=== PATIENT | male | born 1945 | race Caucasian/White ===

== ENCOUNTER 2024-03-14 10:40 | Outpatient (OUT) | payer MEDICARE, OTHER, SELFPAY ==
--- NOTE | 2024-03-14 10:56 | ECG_ITS ---
[facility] Test Date: 2024-03-14 Pat Name: ALLISON WELLER Department: Room: - Gender: Male Manager Auto: : [id number] Requested By: MAYELA PATEL Order Number: [id number] Reading MD: TOD MEDRANO Measurements Intervals Benson Rate: 75 P: 61 LA: 158 QRS: 59 QRSD: 80 T: 53 QT: 348 QTc: 390 Interpretive Statements SINUS RHYTHM WITH FREQUENT VENTRICULAR PREMATURE COMPLEXES ABNORMAL RHYTHM ECG No previous ECG available for comparison Electronically Signed On 03-14-2024 22:40:02 EDT by TOD MEDRANO
[2024-03-14 12:07] LABS: Basophils Percent Auto 0.4 % (0.2-2.0); Eosinophils Absolute Auto 0.2 10^3/uL (0.0-0.7); Eosinophils Percent Auto 2.2 % (0.9-7.0); Hemoglobin 13.3 g/dL (14.0-18.0); Immature Granulocytes Abs Auto 0.03 10^3/uL (0.00-0.03); Immature Granulocytes Pct Auto 0.4 % (0.0-0.5); Lymphocytes Percent Auto 12.7 % (20.5-60.0); Mean Corpuscular HGB Conc 32.4 g/dL (29.9-35.2); Mean Corpuscular Hemoglobin 32.2 pg (25.9-34.0); Mean Corpuscular Volume 99.3 fL (80.0-94.0); Mean Platelet Volume 9.9 fL (9.5-13.5); Monocytes Absolute Auto 0.5 10^3/uL (0.3-0.8); Monocytes Percent Auto 5.9 % (1.7-12.0); Neutrophils Absolute Auto 6.3 10^3/uL (1.4-6.5); Neutrophils Percent Auto 78.4 % (43.0-75.0); Platelet Count 202 10^3/uL (150-450); Red Blood Count 4.13 10^6/uL (4.70-6.10); Red Cell Distribution Width 11.7 % (11.0-15.0); White Blood Count 8.1 10^3/uL (4.0-11.0)
[2024-03-14 12:25] LABS: Anion Gap 15.9; BUN Creatinine Ratio 19.8; Calcium 10.1 mg/dL (8.5-10.1); Carbon Dioxide 23.3 mmol/L (21.0-32.0); Chloride 102 mmol/L (98-107); Estimated GFR (African America >60 (>=60 mL/min/1.73m^2); Estimated GFR (Non-African Ame 58 (>=60 mL/min/1.73m^2); Glucose 169 mg/dL (74-106); Potassium 4.2 mmol/L (3.5-5.1); Sodium 137 mmol/L (136-145)
[2024-03-14 12:34] LABS: INR 1.02; Partial Thromboplastin Time 28.4 sec (22.3-36.2); Prothrombin Time 10.8 sec (9.0-11.6)
== END 2024-03-14 10:41 | disposition home or self-care (01) ==
LOC: PST 10:48
PROVIDERS: PCP Family Medicine; Visit Provider Otolaryngology
DX: Z01.810 Encounter for preprocedural cardiovascular examination (principal); Z01.812 Encounter for preprocedural laboratory examination; H69.92 Unspecified Eustachian tube disorder, left ear
CPT/HCPCS: 36415; 80048; 85025; 85610; 85730; 93005

== ENCOUNTER 2024-03-30 07:19 | Day surgery (SDC) | payer MEDICARE, OTHER, SELFPAY ==
[2024-03-14 11:53] VITALS: BP 132/65; PULSE 77; TEMP 36.3; O2SAT 100; BMI 27.2
[2024-03-30] VITALS (10 sets, daily range): BP systolic 110–145; BP diastolic 50–77; PULSE 70–83; TEMP 36.2–37.2; O2SAT 93–100; BMI 27.3
--- NOTE | 2024-03-30 | OP_ITS ---
OPERATION DATE: 03/30/2024 PREOPERATIVE DIAGNOSIS: Left eustachian tube dysfunction and otitis media with effusion. POSTOPERATIVE DIAGNOSIS: Left eustachian tube dysfunction and otitis media with effusion. PROCEDURE: Left myringotomy and tube with microdissection placement of a T-tube and a nasal endoscopy. ANESTHESIA: General endotracheal. COMPLICATIONS: None. FINDINGS: Left serous effusion. No nasopharyngeal path evident. INDICATIONS: This 78-year-old man presented with otitis media with effusion, unresponsive to aggressive medical management. PROCEDURE: Patient identified in the holding area and taken back to the OR where he was placed in the supine position. After induction of general anesthesia, the left ear was approached with the otomicroscope. An anterior radial myringotomy was performed. A modified Lon?s T-tube was folded and inserted into the middle ear using microdissection. Afrin soaked pledgets were placed in the left nose, and after waiting adequate time for decongestion, the 30 degree nasal endoscope was used to examine the nasopharynx, and there was no abnormal path found. Patient was then awakened and taken to the recovery room in good condition. AFTAB
--- OUTSIDE RECORDS SUMMARY | 2024-03-30 07:24 | XMS_ITS | CCD ---
Author Organization [facility] Care Team Providers Care Press Worker Helper Name Role Phone DR SAMMI GRANADO Attending Unavailable VANNESA, DR CULVER Consulting Unavailable VANNESA, DR CULVER Admitting Unavailable RYAN TAMEZ Referring Unavailable SAMMI GRANADO Primary Care Unavailable SAMMI GRANADO Attending Unavailable SAMMI GRANADO Referring Unavailable SAMMI GRANADO Attending Unavailable FOZIA ASCENCIO Attending Unavailable IMELDA MELO Attending Unavailable HILARY MCCLURE Attending Unavailable FOZIA ASCENCIO Referring Unavailable FOZIA ASCENCIO Attending Unavailable SAMMI GRANADO Attending Unavailable Sammi Granado MD Unavailable Sammi Granado MD Primary Care Provider Allergies Allergy Classification Reported Allergen(s) Allergy Type Date of Onset Reaction(s) Facility (3 sources) Furosemide; Translations: [FUROSEMIDE] Drug Allergy 01-03-2020 Swelling [facility] Rep[facility] Medications Current Medications Medication Drug Class(es) Dates Sig (Normalized) Sig (Original) atorvastatin 40 mg oral tablet (3 sources) HMG-CoA Reductase Inhibitor Start: 11-23-2023 End: 03-20-2024 take 1 tablet by mouth at bedtime atorvastatin (Lipitor) 40 MG tablet Indications: Mixed hyperlipidemia (CMS/HCC) Take 1 tablet (40 mg) by mouth at bedtime 90 tablet 1 03/20/2024 Active calcium carbonate 1500 mg / cholecalciferol 800 unt oral tablet (2 sources) Vitamin D Start: 11-23-2023 take 1 tablet by mouth in the morning Calcium Carb-Cholecalcifero l (Calcium+D3) 600-20 MG-MCG tablet Take 1 tablet by mouth in the morning and 1 tablet at noon. 11/23/2023 Active clopidogrel 75 mg oral tablet (3 sources) P2Y12 Platelet Inhibitor Start: 11-23-2023 End: 11-22-2024 take 1 tablet by mouth in the morning clopidogrel (Plavix) 75 MG tablet Indications: Stroke-like symptoms Take 1 tablet (75 mg) by mouth in the morning. 90 tablet 1 03/20/2024 09/16/2024 Active empagliflozin 25 mg oral tablet (2 sources) Sodium-Glucose Cotransporter 2 Inhibitor Start: 03-06-2024 End: 05-05-2024 take 1 tablet by mouth in the morning empagliflozin (Jardiance) 25 MG Indications: Type 2 diabetes mellitus without complication, without long-term current use of insulin (CMS/HCC) Take 1 tablet (25 mg) by mouth in the morning. 30 tablet 1 03/06/2024 05/05/2024 Active ferrous sulfate 325 mg oral tablet (2 sources) Start: 11-23-2023 End: 11-22-2024 take 1 tablet by mouth at bedtime ferrous sulfate 325 (65 Fe) MG tablet Take 1 tablet (325 mg) by mouth at bedtime 90 tablet 3 11/23/2023 11/22/2024 Active fluticasone propionate 0.05 mg/actuat metered dose nasal spray (2 sources) Corticosteroid Start: 12-21-2023 End: 12-20-2024 take 1 spray(s) nasal route once daily fluticasone (Flonase) 50 MCG/ACT nasal spray Indications: PND (post-nasal drip) Administer 1 spray into each nostril Daily Shake gently. Before first use, prime pump. After use, clean tip and replace cap. 16 g 2 12/21/2023 12/20/2024 Active glipiZIDE 5 mg oral tablet (5 sources) Sulfonylurea Start: 04-20-2023 End: 04-19-2024 take 1 tablet by mouth in the morning glipiZIDE (Glucotrol) 10 MG tablet Indications: Type 2 diabetes mellitus without complication, without long-term current use of insulin (CMS/HCC) Take 1 tablet (10 mg) by mouth in the morning. 90 tablet 3 04/20/2023 04/19/2024 Active Start: 04-20-2023 End: 09-16-2024 take 1 tablet by mouth at bedtime glipiZIDE (Glucotrol) 5 MG tablet Indications: Type 2 diabetes mellitus without complication, without long-term current use of insulin (CMS/HCC) Take 1 tablet (5 mg) by mouth at bedtime 90 tablet 1 03/20/2024 09/16/2024 Active 3 ml insulin glargine 100 unt/ml pen injector (2 sources) Insulin Analog Start: 12-21-2023 End: 12-20-2024 insulin glargine (Lantus SoloStar) 100 UNIT/ML pen Indications: Type 2 diabetes mellitus with hyperglycemia, with long-term current use of insulin (CMS/HCC) Inject 22 Units under the skin at bedtime 19.8 mL 3 12/21/2023 12/20/2024 Active loratadine 10 mg oral tablet (2 sources) take 1 tablet by mouth every twenty-four hours as needed loratadine (Claritin) 10 MG tablet Take 1 tablet by mouth Daily as needed for allergies Active metFORMIN hydrochloride 850 mg oral tablet (2 sources) Biguanide Start: 01-04-2024 End: 01-03-2025 metFORMIN (Glucophage) 850 MG tablet Indications: Type 2 diabetes mellitus with hyperglycemia, with long-term current use of insulin (CMS/[facility]) Take 1 tablet (850 mg) by mouth in the morning and 1 tablet (850 mg) at noon and 1 tablet (850 mg) in the evening. Take with meals. 270 tablet 3 01/04/2024 01/03/2025 Active Misc Natural Products (Osteo Bi-Flex Triple Strength) tablet (2 sources) take 2 tablets by mouth in the morning Misc Natural Products (Osteo Bi-Flex Triple Strength) tablet Take 2 tablets by mouth in the morning. Active Multiple Vitamins-Minerals (Centrum Silver 50+Men) tablet (2 sources) Start: 11-23-2023 take 1 tablet by mouth in the evening Multiple Vitamins-Minerals (Centrum Silver 50+Men) tablet Take 1 tablet by mouth in the evening 11/23/2023 Active ramipril 5 mg oral capsule (3 sources) Angiotensin Converting Enzyme Inhibitor Start: 04-20-2023 End: 09-16-2024 take 1 capsule by mouth once daily ramipril (Altace) 5 MG capsule Indications: Primary hypertension (CMS/HCC) Take 1 capsule (5 mg) by mouth Daily 90 capsule 1 03/20/2024 09/16/2024 Active tamsulosin hydrochloride 0.4 mg oral capsule (2 sources) alpha-Adrenergic [place] Start: 11-23-2023 End: 11-22-2024 take 1 capsule by mouth every twenty-four hours at bedtime tamsulosin (Flomax) 0.4 MG 24 hr capsule Indications: Benign prostatic hyperplasia with urinary frequency Take 1 capsule (0.4 mg) by mouth at bedtime 90 capsule 3 11/23/2023 11/22/2024 Active Problems Active Problems Problem Classification Problem Date Documented Date Episodic/Chronic Cancer of prostate (3 sources) Malignant neoplasm of prostate; Translations: [Adenocarcinoma of prostate] Onset: 06-10-2021 12-01-2022 Chronic Diabetes mellitus with complications (2 sources) Hyperglycemia due to type 2 diabetes mellitus; Translations: [Type 2 diabetes mellitus with hyperglycemia] Onset: 12-01-2022 08-05-2023 Chronic Diabetes mellitus without complication (1 source) Type 2 diabetes mellitus without complication; Translations: [Type 2 diabetes mellitus without complications] 03-20-2024 Chronic Disorders of lipid metabolism (3 sources) Mixed hyperlipidemia; Translations: [Mixed hyperlipidemia] Onset: 12-01-2022 12-01-2022 Chronic Essential hypertension (3 sources) Essential hypertension; Translations: [Essential (primary) hypertension] Onset: 12-01-2022 12-01-2022 Chronic Hyperplasia of prostate (2 sources) Benign prostatic hyperplasia; Translations: [Benign prostatic hyperplasia with lower urinary tract symptoms] Onset: 11-24-2022 12-01-2022 Chronic Occlusion or stenosis of precerebral arteries (2 sources) Bilateral stenosis of carotid arteries; Translations: [Occlusion and stenosis of bilateral carotid arteries] Onset: 06-15-2022 12-01-2022 Chronic Other connective tissue disease (3 sources) Neurological symptom; Translations: [Unspecified symptoms and signs involving the nervous system] Onset: 01-14-2023 01-21-2023 Episodic Other injuries and conditions due to external causes (2 sources) Otitic barotrauma; Translations: [Otitic barotrauma, initial encounter] Onset: 01-03-2024 01-03-2024 Episodic Other upper respiratory disease (2 sources) Non-allergic rhinitis; Translations: [Chronic rhinitis] Onset: 12-01-2022 12-01-2022 Chronic Otitis media and related conditions (4 sources) Otitis media of left ear; Translations: [Unspecified nonsuppurative otitis media, left ear] Onset: 01-03-2024 01-03-2024 Episodic Transient cerebral ischemia (2 sources) Transient cerebral ischemia; Translations: [Transient cerebral ischemic attack, unspecified] Onset: 01-03-2024 01-03-2024 Chronic Unclassified (3 sources) CONTACT W/AND (SUSP) EXPOS COVID-19; Translations: [CONTACT W/AND (SUSP) EXPOS COVID-19] Onset: 04-04-2021 Past or Other Problems Problem Classification Problem Date Documented Date Episodic/Chronic Other and unspecified benign neoplasm (2 sources) Hyperplastic polyp of large intestine; Translations: [Polyp of colon] Onset: 1 12-01-2022 Episodic Other connective tissue disease (2 sources) Weakness of left hand; Translations: [Other symptoms and signs involving the musculoskeletal system] Onset: 3 01-21-2023 Episodic Other gastrointestinal disorders (2 sources) Dysphagia; Translations: [Dysphagia, pharyngoesophageal phase] Onset: 3 12-01-2022 Episodic Other screening for suspected conditions (not mental disorders or infectious disease) (2 sources) Patient encounter status; Translations: [Encounter for screening for malignant neoplasm of colon] Onset: 1 12-01-2022 Episodic Spondylosis; intervertebral disc disorders; other back problems (2 sources) Cervical radiculopathy; Translations: [Radiculopathy, cervical region] Onset: 3 01-21-2023 Episodic Unclassified (1 source) CONTACT W/AND (SUSP) EXPOS COVID-19; Translations: [CONTACT W/AND (SUSP) EXPOS COVID-19] Onset: 1 Results Test Name Value Interpretation Reference Range Facility ALL CBC WITH AUTO DIFFon BASOPHILS ABSOLUTE AUTO 0.0 [facility] Basophils/100 WBC (Bld) 0.4 % 0.2 - 2.0 % [facility] Eosinophils/100 WBC (Bld) 2.2 % 0.9 - 7.0 % [facility] Erythrocyte distribution width (RBC) [Ratio] 11.7 % 11.0 - 15.0 % [facility] Hematocrit (Bld) [Volume fraction] 41.0 % Low 42.0 - 54.0 % [facility] Hemoglobin (Bld) [Mass/Vol] 13.3 g/dL Low 14.0 - 18.0 g/dL [facility] IMMATURE GRANULOCYTES ABS AUTO 0.03 [facility] Immature granulocytes/100 WBC (Bld) 0.4 % 0.0 - 0.5 % [facility] Interpretation and review of laboratory results Abnormal [facility] LYMPHOCYTES ABSOLUTE AUTO 1.0 Low [facility] Lymphocytes/100 WBC (Bld) 12.7 % Low 20.5 - 60.0 % [facility] MCH (RBC) [Entitic mass] 32.2 pg 25.9 - 34.0 pg [facility] MCHC (RBC) [Mass/Vol] 32.4 g/dL 29.9 - 35.2 g/dL [facility] MCV (RBC) [Entitic vol] 99.3 fL High 80.0 - 94.0 fL [facility] MONOCYTES ABSOLUTE AUTO 0.5 [facility] Monocytes/100 WBC (Bld) 5.9 % 1.7 - 12.0 % [facility] NEUTROPHILS ABSOLUTE AUTO 6.3 [facility] Neutrophils/100 WBC (Bld) 78.4 % High 43.0 - 75.0 % [facility] Platelet mean volume (Bld) [Entitic vol] 9.9 fL 9.5 - 13.5 fL [facility] PLT 202 [facility] RBC 4.13 Low [facility] TBH WBC 8.1 [facility] Prostate specific Ag [Mass/V ol]on 11-23-2023 PROSTATIC SPEC ANT <0.01 Normal 0.00-4.00 [facility] Comment on above: Result Comment: The method used for this test is Estephanie [place] DXI chemiluminescent immunoassay. Values obtained by different assay methods cannot be used interchangeably. Performed By: #### 2 [id number] #### [facility] ([id number]) [address] [place] [address] DEXA BONE DENSITYon 08-30-19 DEXA BONE DENSITY HISTORY: Screening for osteoporosis COMPARISON: None available COMMENTS: The lumbar spine and both hips were scanned. The mean bone mineral density from L1 to L4 is 0.845 g/sq cm. T-score -2.2. Z- score -1.1 The mean bone mineral density of the left femoral neck is 0.676 g/sq cm. T-score -1.9. Z- score -0.4. The mean bone mineral density of the right femoral neck is 0.722 g/sq cm. T-score -1.5. Z- score -0.1. These values meet WHO criteria for osteopenia. 10-year fracture risk: Major osteoporotic fracture 8.3%; hip fracture 3%. IMPRESSION: OSTEOPENIA. 1 year follow-up recommended. ELECTRONICALLY SIGNED BY: Carson Arrington, DO Normal Not Available US Carotid, Bilateralon 05-08 US Carotid, Bilateral FINDINGS: Right (% stenosis)Left (% stenosis) ICA Peak Systolic Velocity (cm/sec)434 (84%)241 (65%) ICA/CCA Systolic Ratio4.9 (78%)2.7 (61%) BILATERAL CAROTID SYSTEMS: Large volume of echogenic shadowing and non-shadowing plaque bilaterally both carotid bulbs and ICA/ECA origins, right greater than left. Velocity and ratio values are hemodynamically significant (left 61-65%, right 78-84%). Normal bilateral vertebral arterial flow. Estimated range of stenosis*: LEFT: Hemodynamically significant, 61-65% stenosis RIGHT: Hemodynamically significant, severe, 78-84% *COMMENT: These estimates represent a median value within a 95% confidence interval range. They represent percent diameter ICA stenosis derived from regression curve analysis using the NASCET method and Doppler ultrasound velocities. Please note with high-grade stenosis (greater than 95%), an actual reduction in velocity will occur. Reference: Rock Harvey. carotid ultrasound, in [facility] NA, 39 (3), Oct, 2000. Report reported and signed by Rock Leon on 06/03/2022 1212 Normal [facility] Covid-19 PCR (CVDTBH)on 03-08 SARS-CoV-2 (COVID-19) RNA ROB+probe Ql (Unsp spec) Not detected Normal NOT DETECTED [facility] Comment on above: Result Comment: This test is not yet approved or cleared by the [place] FDA. When there are no FDA-approved or cleared tests available, and other criteria are met, FDA can make tests available under an emergency access mechanism called an Emergency Use Authorization (EUA). The EUA for this test is supported by the [place] of Health and Human Service's (HHS's) declaration that circumstances exist to justify the emergency use of in vitro diagnostics for the detection and/or diagnosis of the virus that causes COVID-19. This EUA will remain in effect (meaning this test can be used) for the duration of the COVID-19 declaration justifying emergency of IVDs, unless it is terminated or revoked by FDA (after which the test may no longer be used). When diagnostic testing is negative, the possibility of a false negative should be considered in the context of a patient's recent exposures and the presence of clinical signs and symptoms consistent with SARS-CoV-2. Performed By: #### C [facility] #### [facility] [address] [place] [address] Dr. Zaafr Croft Encounters Encounter Date Encounter Type Care Provider Facility Start: 03-20-2024 End: 03-20-2024 Refill Sammi Granado MD Work Phone: [facility] Comment on above: Type 2 diabetes suzy itus without complication, without long- term current use of insulin ([facility]/HCC); Primary hypertension ([facility]); Mixed hyperlipidemia ([facility]); Stroke-like symptoms Start: 03-14-2024 End: 03-14-2024 [facility] Result Encounter Generic External Data Provider [facility] Unsolicited Start: 03-14-2024 End: 03-14-2024 [facility] Result Encounter Generic External Data Provider [facility] Unsolicited Start: 03-01-2024 End: 03-01-2024 ambulatory FOZIA H TIMMIS Not Available Start: 02-23-2024 End: 02-23-2024 ambulatory HILARY MCCLURE Not Available Start: 01-03-2024 End: 01-03-2024 ambulatory FOZIA H TIMMIS Not Available Start: 12-21-2023 End: 12-21-2023 ambulatory SAMMI GRANADO Not Available Start: 11-23-2023 End: 11-23-2023 ambulatory RYAN ALARCONUSTER [facility] Start: 08-30-2023 End: 08-30-2023 ambulatory SAMMI GRANADO Not Available Start: 08-27-2023 End: 08-27-2023 ambulatory SAMMI GRANADO Not Available Start: 05-28-2023 End: 05-28-2023 ambulatory SAMMI GRANADO Not Available Start: 05-13-2023 End: 05-13-2023 ambulatory IMELDA MELO Not Available Start: 03-28-2021 End: 03-28-[address] SAMMI GRANADO Facility:H1 Procedures Date Procedure Procedure Detail Performing Clinician Start: 03-14-2024 ALL CBC WITH AUTO DIFF Fozia Ascencio MD Work Phone: Plan of Treatment Date Care Activity Detail Author Start: 05-05-2025 Glaucoma screening Diabetes: R etinopathy Screening [facility] Start: 08-26-2024 Urine screening for protein Diabetes: Urine Protein Screening [facility] Start: 06-06-2024 End: 06-06-2024 Patient encounter procedure 06/06/2024 10:00 AM EST Office Visit [facility] [address] [place] [address] Sammi Granado MD [address] [place], [place] [id number] [facility] Start: 05-28-2024 Medicare Annual Well ness (AWV) Medicare Annual Wellness (AWV) [facility] Start: 05-15-2024 End: 05-15-2024 Patient encounter procedure 05/15/2024 1:15 PM EST Office Visit [facility] [address] [place] [id number] Imelda Melo MD [address] [place] [address] [facility] Start: 05-02-2024 End: 05-02-2024 Patient encounter procedure 05/02/2024 9:50 AM EST Office Visit [facility] [address] [facility] [address] [place] [address] Fozia Ascencio MD [address] [facility] [address] [place] [address] [facility] Start: 03-30-2024 End: 03-30-2024 Patient encounter procedure 03/30/2024 9:00 AM EDT Procedure Visit [facility] Fozia Ascencio MD [address] [facility] [address] [place] [address] [facility] Start: 03-22-2024 Hemoglobin A1c measurement Diabetes: Hemoglobin A1C [facility] Immunizations Immunization Date Immunization Notes Care Provider Fa cility 12-21-2023 Pneumococcal Conjuga te PCV 20 Generic Provider [facility] 06-17-2023 ABRYSVO - Respirator y syncytial virus (RSV), vaccine, bivalent, protein subunit RSV prefusion F, diluent reconstituted, 0.5 mL, PF Generic Provider [facility] 03-04-2023 influenza, high dose seasonal, preservative-free Generic Provider [facility] are 05-28-2022 tetanus and diphther ia toxoids, adsorbed, preservative free, for adult use (2 Lf of tetanus toxoid and 2 Lf of diphtheria toxoid) Generic Provider [facility] 05-28-2022 tetanus and diphther ia toxoids, adsorbed, preservative free, for adult use (5 Lf of tetanus toxoid and 2 Lf of diphtheria toxoid) Generic Provider [facility] 05-20-2022 Moderna SARS-CoV-2 B ooster Vaccination Generic Provider [facility] 05-20-2022 SARS-COV-2 (COVID-19 ) vaccine, mRNA, spike protein, LNP, bivalent, PF Generic Provider [facility] re 03-17-2022 Influenza, High-dose Seasonal, Quadrivalent, Preservative Free Generic Provider [facility] 02-21-2021 Influenza, High-dose Seasonal, Quadrivalent, Preservative Free Generic Provider [facility] 05-08-2020 zoster vaccine recombinant Generic P rovider [facility] 02-15-2020 zoster vaccine recombinant Generic P rovider [facility] 02-07-2020 influenza, high dose seasonal, preservative-free Generic Provider [facility] are 02-07-2020 Influenza, High-dose Seasonal, Quadrivalent, Preservative Free Generic Provider [facility] 02-24-2019 influenza, high dose seasonal, preservative-free Generic Provider [facility] are 02-24-2019 Influenza, High-dose Seasonal, Quadrivalent, Preservative Free Generic Provider [facility] 03-11-2018 influenza, high dose seasonal, preservative-free Generic Provider [facility] are 03-11-2018 Influenza, High-dose Seasonal, Quadrivalent, Preservative Free Generic Provider [facility] 03-22-2017 influenza, high dose seasonal, preservative-free Generic Provider [facility] are 02-02-2017 pneumococcal conjuga te vaccine, 13 valent Generic [facility] 03-06-2016 influenza, high dose seasonal, preservative-free Generic Provider [facility] are 03-06-2016 influenza, injectabl e, quadrivalent, preservative free Generic Provider [facility] 03-27-2013 influenza virus vacc ine, whole virus Generic [facility] 03-08-2012 influenza virus vacc ine, whole virus Generic [facility] 04-01-2011 pneumococcal polysac charide vaccine, 23 valent Generic Provider [facility] 03-16-2011 pneumococcal polysac charide vaccine, 23 valent Generic Provider [facility] 03-19-2010 influenza virus vacc ine, whole virus Generic Provider [facility] 03-13-2009 influenza virus vacc ine, whole virus Generic Provider [facility] 2007 influenza virus vacc ine, whole virus Generic [facility] Payers Date Payer Category Payer [facility] Health Insurance [employer] [id number] 2021 Unknown [employer] [id number] 2021-Present [address] [place] [address] [id number] 2021 Unknown [id number] 2011 Medicare [id number] 1959 Medicare [id number] 1945 Unknown [id number] 1946 Unknown [id number] 1286 1946 Unknown [id number]. 1259 1946 Unknown [id number]. 1259 1946 Unknown [id number]. 1259 1946 Unknown [id number]. 1259 1946 Unknown [id number]. 1259 1946 Unknown [id number]. 1259 1946 Unknown [id number]. 1259 1946 Unknown [id number] 1259 Social History Date Type Detail Facility Start: 12-01-2022 Tobacco smoking status MTIS Never sm oked tobacco [facility] Start: 12-01-2022 Tobacco use and exposure Smoke less tobacco non-user [facility] Start: 03-01-2024 Alcoholic beverage intake Curr ent drinker of alcohol (finding) [facility] Start: 03-03-2023 End: 03-01-2024 Alcoholic beverage intake [facility] Start: 01-21-2023 End: 03-03-2023 Humiliation, Afraid, Rape, and Kick questionnaire [HARK] [facility] Within the last year , have you been afraid of your partner or ex-partner? No [facility] Are you now , , , , never or living with a partner? [facility] How often to you hav e a drink containing alcohol? 2-4 times a month [facility] How many standard dr inks containing alcohol do you have on a typical day? 1 or 2 [facility] How often do you hav e 6 or more drinks on 1 occasion? Never [facility] How hard is it for y ou to pay for the very basics like food, housing, medical care, and heating Not hard at all [facility] Do you feel stress - tense, restless, nervous, or anxious, or unable to sleep at night because your mind is troubled all the time - these days [OSQ] To some extent [facility] (I/We) worried wheth er (my/our) food would run out before (I/we) got money to buy more. Never true [facility] Start: 12-21-2023 Alcohol Comment Caffine: 1 cup daily [facility] Start: 1945 Sex assigned at Not on file [place] [facility] Start: 08-19-2022 Gender identity Identifies as male gender (finding) [facility] Medical Equipment Procedure Code Equipment Code Equipment Origin al Text Equipment Identifier Dates 1 each by Other route in the morning and 1 each in the evening and 1 each before bedtime. Use as instructed. [id number] Start: 07-07-2023 End: 07-06-2024 Use as instructed [id number] Start: 05-17-2023 End: 05-16-2024 Use as instructed [id number] Start: 03-20-2024 End: 03-20-2025 Telephone encounter Note 03-20-2024 Telephone Encounter - Sammi Granado MD - 03/20/2024 2:39 PM EDT Note Date & Type Note Facility 10-14-2024 Telephone encount er Note Refills sent. [facility] Note 03-20-2024 Telephone Encounter - Sammi Granado MD - 03/20/2024 2:39 PM EDT Note Date & Type Note Facility 03-20-2024 Miscellaneous Notes Formattin g of this note might be different from the original. Refills sent. documented in this encounter [facility] Evaluation note Note Date & Type Note Facility Evaluation note Diagnosis Iron deficiency anemia, unspecified iron deficiency anemia type- Primary Type 2 diabetes mellitus without complication, without long-term current use of insulin (CMS/HCC) Adenocarcinoma of prostate (CMS/HCC) Malignant neoplasm of prostate Bilateral carotid artery stenosis Occlusion and stenosis of carotid artery without mention of cerebral infarction Primary hypertension (CMS/HCC) Unspecified essential hypertension Mixed hyperlipidemia (CMS/HCC) Mixed hyperlipidemia Orthostatic hypotension Encounter for immunization- Primary Type 2 diabetes mellitus without complication, without long-term current use of insulin (CMS/HCC) Anemia, unspecified type Bilateral carotid artery stenosis Occlusion and stenosis of carotid artery without mention of cerebral infarction Primary hypertension (CMS/HCC) Unspecified essential hypertension Adenocarcinoma of prostate (CMS/HCC) Malignant neoplasm of prostate Mixed hyperlipidemia (CMS/HCC) Mixed hyperlipidemia Wellness examination- Primary Adenocarcinoma of prostate (CMS/HCC) Malignant neoplasm of prostate Type 2 diabetes mellitus without complication, without long-term current use of insulin (CMS/HCC) Iron deficiency anemia, unspecified iron deficiency anemia type Bilateral carotid artery stenosis Occlusion and stenosis of carotid artery without mention of cerebral infarction Primary hypertension (CMS/HCC) Unspecified essential hypertension Mixed hyperlipidemia (CMS/HCC) Mixed hyperlipidemia Type 2 diabetes mellitus with hyperglycemia, with long-term current use of insulin (CMS/HCC)- Primary Primary hypertension (CMS/HCC) Unspecified essential hypertension Adenocarcinoma of prostate (CMS/HCC) Malignant neoplasm of prostate Mixed hyperlipidemia (CMS/HCC) Mixed hyperlipidemia Bilateral carotid artery stenosis Occlusion and stenosis of carotid artery without mention of cerebral infarction H/O high risk medication treatment Osteopenia of multiple sites Iron deficiency anemia, unspecified iron deficiency anemia type Type 2 diabetes mellitus without complication, without long-term current use of insulin (CMS/HCC) Primary hypertension (CMS/HCC) Unspecified essential hypertension Mixed hyperlipidemia (CMS/[facility]) Mixed hyperlipidemia Stroke-like symptoms documented in this encounter [facility] Summary Purpose Family History No Family History Records FoundNo Family History Records FoundNo Family History Records FoundNo Family History Records Found Advance Directives No Advanced Directives Records FoundNo Advanced Directives Records FoundNo Advanced Directives Records FoundNo Advanced Directives Records Found Additional Source Comments (unrecognized sect ion and content) No Status Records FoundNo Status Records FoundNo Status Records FoundNo Status Records Found INFORMATION SOURCE (unrecogn ized section and content) DATE CREATED AUTHOR 04/05/2021 [facility] DATE CREATED AUTHOR AUTHOR'S ORGANIZ ATION 06/03/2022 [facility] dical Specialist DATE CREATED AUTHOR AUTHOR'S ORGANIZ ATION 11/25/[address] [facility] DATE CREATED AUTHOR AUTHOR'S ORGANIZ ATION 03/03/2024 [facility] dical Specialists EPIC Care Teams (unrecognized sec tion and content) Press Worker Helper Relationship Specialty Start Date End Date Sammi Granado MD [address] [place] [address] PCP - ACO Reach 10/29/22 Sammi Granado MD [address] [place] [address] PCP - General Family Medicine 11/30/22 Press Worker Helper Relationship Specialty Start Date End Date Sammi Granado MD [address] [place] [address] PCP - ACO Reach 10/29/22 Sammi Granado MD [address] [facility] [place] [address] PCP - General Family Medicine 11/30/22 Reason for Visit (unrecogniz ed section and content) Reason Onset Date Comments Med Refill 03/20/2024 FOR RECORDS PERTAINING TO PATIENTS WHO ARE OR HAVE BEEN ENROLLED IN A CHEMICAL DEPENDENCY/SUBSTANCEABUSE PROGRAM, SOME INFORMATION MAY BE OMITTED. This clinical summary was aggregated from multiple sources. Caution should be exercised in using it in the provision of clinical care. This summary normalizes information from multiple sources, and as a consequence, information in this document may materially change the coding, format and clinical context of patient data. In addition, data may be omitted in some cases. CLINICAL DECISIONS SHOULD BE BASED ON THE PRIMARY CLINICAL RECORDS. [facility] [employer] [facility]. provides no warranty or guarantee of the accuracy or completeness of information in this document.
[2024-03-30 07:41] LABS: Glucometer 176 mg/dL (74-106)
[2024-03-30] MEDS: 0.9 % SODIUM CHLORIDE 500 ML 50 ML IV (07:50)
[2024-03-30] MEDS: OXYMETAZOLINE HCL 0.05% NASAL SPRAY 30 SPRAY NS ×2 (08:55)
[2024-03-30] MEDS: CIPROFLOXACIN HCL/DEXAMETH 0.3%/0.1% OTIC SUSP 150 DROP/7.5 ML BOTTLE OT (08:57)
== END 2024-03-30 10:10 | disposition home or self-care (01) ==
PROVIDERS: PCP Family Medicine; Visit Provider Otolaryngology
PROC: (CPT 31231; principal; 2024-03-30 08:30)
DX: H69.92 Unspecified Eustachian tube disorder, left ear (principal); H65.92 Unspecified nonsuppurative otitis media, left ear; E11.9 Type 2 diabetes mellitus without complications; Z79.84 Long term (current) use of oral hypoglycemic drugs; E78.5 Hyperlipidemia, unspecified; I65.29 Occlusion and stenosis of unspecified carotid artery; Z86.73 Personal history of transient ischemic attack (TIA), and cerebral infarction without residual deficits; C61 Malignant neoplasm of prostate
CPT/HCPCS: 31231; 69436; 36415; 82948; J1100; J2405; J2704